=== PATIENT | male | born 1990 | race Caucasian/White ===

== ENCOUNTER 2021-01-26 09:21 | Emergency (ER) | payer SELFPAY ==
[2021-01-26 09:25] VITALS: BP 140/84; PULSE 71; TEMP 37.1; O2SAT 99
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
--- NOTE | 2021-01-26 10:10 | NUR.NOTE ---
referral to [facility] for pcp follow up
[2021-01-26] MEDS: Ibuprofen 600 MG TAB PO (10:13)
[2021-01-26] MEDS: Acetaminophen 500 MG TAB 1000 MG PO (10:13)
[2021-01-26] MEDS: Methocarbamol 500 MG TAB 1500 MG PO (10:14)
[2021-01-26] MEDS: Lidocaine 5% Patch 1 PATCH TP (10:17)
[2021-01-26 11:57] VITALS: BP 133/62; PULSE 58; RESP 18; TEMP 36.4; O2SAT 98
== END 2021-01-26 12:05 | disposition home or self-care (01) ==
PROVIDERS: Emergency Provider Physician Assistant
DX: M62.830 Muscle spasm of back (principal); M54.6 Pain in thoracic spine
CPT/HCPCS: 99284; 72128; 72131